=== PATIENT | male | born 1940 | race African-American/Black ===

== ENCOUNTER 2018-06-26 19:17 | Inpatient (IN) | payer OTHER ==
[2018-06-26 19:58] VITALS: BMI 30.9
--- NOTE | 2018-06-26 20:38 | HP ---
CIWA Score Nausea/Vomitin Muscle Tremors: 4-Moderate,w/Arms Extend Anxiety: 2 Agitation: 2 Paroxysmal Sweats: No Perspiration Orientation: 0-Oriented Tacttile Disturbances: 2-Mild Itch/Numbness/Burn Auditory Disturbances: 2-Mild Harshness/Frighten Visual Disturbances: 2-Mild Sensitivity Headache: 2-Mild CIWA-Ar Total Score: 18 - Admission Criteria OASAS Guidelines: Admission for Medically Managed Detox: Requires at least one of the followin. CIWA greater than 12 2. Seizures within the past 24 hours 3. Delirium tremens within the past 24 hours 4. Hallucinations within the past 24 hours 5. Acute intervention needed for co occurring medical disorder 6. Acute intervention needed for co occurring psychiatric disorder 7. Severe withdrawal that cannot be handled at a lower level of care (continued vomiting, continued diarrhea, abnormal vital signs) requiring intravenous medication and/or fluids 8. Admission ROS [facility] - HPI Chief Complaint: DEPENDENT ON STREET [facility] ONLY Allergies/Adverse Reactions: Allergies Allergy/AdvReac Type Severity Reaction Status Date / Time No Known Allergies Allergy Verified 06/26/18 19:54 History of Present Illness: THE PT. IS REQUESTING ADMISSION TO THE DETOX UNIT AND CAME FOR H AND PE Exam Limitations: No Limitations - Ebola screening Have you traveled outside of the country in the last 21 days: No Have you had contact with anyone from an Ebola affected area: No Have you been sick,other than usual withdrawal symptoms: No Do you have a fever: No - Review of Systems Constitutional: See HPI, Malaise, Night Sweats, Weakness EENT: reports: See HPI Respiratory: reports: See HPI Cardiac: reports: See HPI GI: reports: See HPI, Nausea, Abdominal cramping : reports: See HPI Musculoskeletal: reports: See HPI, Muscle Pain, Muscle Weakness Neuro: reports: See HPI, Headache, Tremors, Weakness, Unsteady Gait Endocrine: reports: See HPI Hematology: reports: See HPI Psychiatric: reports: Judgement Intact, Orientated x3, Anxious, Depressed Patient History - Patient Medical History Hx Hypertension: Yes Hx Thyroid Disease: Yes (hypothyroidism) Hx Human Immunodeficiency Virus (HIV): No Hx Hepatitis C: No Other Medical History: ANXIETY DISORDER, PANIC ATTACKS - Patient Surgical History Past Surgical History: No - Smoking Cessation Smoking history: Current every day smoker Have you smoked in the past 12 months: Yes Aproximately how many cigarettes per day: 15 Hx Chewing Tobacco Use: No Initiated information on smoking cessation: Yes 'Breaking Loose' booklet given: 06/26/18 - Substance & Tx. History Hx Alcohol Use: No Hx Substance Use: Yes Substance Use Type: Tranquilizers Hx Substance Use Treatment: No - Substances Abused Diazepam Route: Oral Frequency: 3-6 times per week Amount used: 10-20 mgs./each time - from the street Age of first use: 76 Date of Last Use: 06/25/18 Family Disease History - Family Disease History Family History: Denies Admission Physical Exam [facility] - Vital Signs Vital Signs: Vital Signs - 24 hr 06/26/18 19:42 Temperature 96.5 F L Pulse Rate 76 Respiratory 18 Rate Blood Pressure 131/75 - Physical General Appearance: Yes: No Apparent Distress, Nourished, Appropriately Dressed , Tremorous, Anxious HEENTM: Yes: Hearing grossly Normal, Normocephalic, Normal Voice, EDUARDO, Pharynx Normal Respiratory: Yes: Chest Non-Tender, Normal Breath Sounds, No Respiratory Distress, No Accessory Muscle Use, Rales (A FEW RALES HERE AND THERE+) Neck: Yes: No masses,lesions,Nodules, Supple, Trachea in good position Breast: Yes: Axillae without masses Cardiology: Yes: Regular Rhythm, Regular Rate, S1, S2 Abdominal: Yes: Normal Bowel Sounds, Non Tender, Protuberent Back: Yes: Normal Inspection, Decreased Range of Motion Musculoskeletal: Yes: Back pain, Joint Stiffness, Muscle Pain, Muscle weakness Extremities: Yes: Normal Capillary Refill, Non-Tender, Tremors Neurological: Yes: Fully Oriented, Alert, Motor Strength 5/5, Normal Response, Depressed Affect Integumentary: Yes: Normal Color, Dry, Warm - Addiitonal Findings: DELAYED RESPONSE TO QUESTIONS++. - Diagnostic (1) Benzodiazepine dependence Current Visit: Yes Status: Chronic (2) Anxiety disorder Current Visit: Yes Status: Chronic Qualifiers: Anxiety disorder type: generalized anxiety disorder Qualified Code(s): F41.1 - Generalized anxiety disorder (3) Nicotine dependence Current Visit: Yes Status: Chronic (4) Hypothyroidism Current Visit: Yes Status: Chronic Qualifiers: Hypothyroidism type: unspecified Qualified Code(s): E03.9 - Hypothyroidism , unspecified (5) Panic attacks Current Visit: Yes Status: Chronic Cleared for Admission [facility] - Detox or Rehab [facility] Level of Care: Medically Supervised Detox Regimen/Protocol: Valium [facility] Breath Alcohol Content Breath Alcohol Content: 0 Urine Drug Screen - Results Drug Screen Negative: No Urine Drug Screen Results: BZO-Benzodiazepines
[2018-06-26] MEDS ORDERED: IBUPROFEN 400 MG TABLET (FP) PO PRN (20:47)
[2018-06-26] MEDS ORDERED: guaiFENesin/D-METHORPHAN HB 10 ML UNIT-DOSE CUPS PO PRN (20:47)
[2018-06-26] MEDS ORDERED: LOPERAMIDE HCL 2 MG CAPSULE PO PRN (20:47)
[2018-06-26] MEDS ORDERED: MAG HYDROX/AL HYDROX/SIMETH 30 ML UNIT-DOSE CUP PO PRN (20:47)
[2018-06-26] MEDS ORDERED: MAGNESIUM CITRATE 300 ML BOTTLE PO PRN (20:47)
[2018-06-26] MEDS ORDERED: MENTHOL/PHENOL 1 EACH UD MM PRN (20:47)
[2018-06-26] MEDS ORDERED: MAGNESIUM HYDROX 2400MG/30ML ORAL SUSPENSION 30 ML CUP PO PRN (20:47)
[2018-06-26] MEDS ORDERED: P-EPHED 60MG/TRIPROLIDI 2.5MG TABLET PO PRN (20:47)
[2018-06-26] MEDS ORDERED: diazePAM 5 MG TABLET PO ONE (21:15)
[2018-06-26] MEDS: THIAMINE HCL 100 MG TABLET (FP) PO SCH (23:11)
[2018-06-26] MEDS: MELATONIN 5 MG TABLETS PO PRN (23:13)
[2018-06-26] MEDS: diazePAM 5 MG TABLET PO SCH (23:16)
[2018-06-27] MEDS: diazePAM 5 MG TABLET PO SCH ×3 (05:28→21:57)
[2018-06-27] MEDS: LEVOTHYROXINE NA 25 MCG TABLET (FP) PO SCH (06:54)
[2018-06-27] MEDS: glipiZIDE-XL 2.5 MG TAB.ER.24 PO SCH (06:54)
[2018-06-27] MEDS: PRENATAL VITAMINS W/ FOLIC ACID TABLET (FP) PO SCH (10:15)
[2018-06-27] MEDS: NICOTINE 21 MG/24 HOURS TOPICAL PATCH TD SCH (10:15)
[2018-06-27] MEDS: NIFEdipine E.R. 30 MG TABLET (FP) PO SCH (10:15)
[2018-06-27 11:06] LABS: HEMATOCRIT 46.1 % (35.4-49); HEMOGLOBIN 15.2 GM/dL (11.7-16.9); MCH 29.4 pg (25.7-33.7); MCHC 33.1 g/dl (32.0-35.9); MEAN CELL VOLUME 88.9 fl (80-96); MEAN PLT VOLUME 9.2 fl (7.5-11.1); PLATELET COUNT 232 K/MM3 (134-434); RBC 5.19 M/mm3 (4.00-5.60); RDW 12.9 % (11.9-15.9); WHITE BLOOD COUNT 5.6 K/mm3 (4.0-10.0)
[2018-06-27] MEDS: diazePAM 5 MG TABLET PO PRN (11:07)
[2018-06-27 11:17] LABS: ALBUMIN 3.4 g/dl (3.4-5.0); ALK PHOS 82 U/L (45-117); ANION GAP 6 MMOL/L (8-16); BILIRUBIN,TOTAL 0.6 mg/dL (0.2-1); BLOOD UREA NITROGEN 16 mg/dL (7-18); CALCIUM 8.5 mg/dL (8.5-10.1); CHLORIDE 107 mmol/L (98-107); CO2 27 mmol/L (21-32); CREATININE 0.9 mg/dL (0.55-1.3); GLUCOSE,RANDOM 95 mg/dL (74-106); POTASSIUM 3.9 mmol/L (3.5-5.1); SGOT/AST 39 U/L (15-37); SGPT/ALT 41 U/L (13-61); SODIUM 139 mmol/L (136-145)
--- NOTE | 2018-06-27 11:32 | CONSULT ---
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 This is patient 's first admission to detox at [facility]. Patient admitted to for benzodiazepine dependence. Substance Abuse History: Smoking Cessation. Smoking history: Current every day smoker. Have you smoked in the past 12 months: Yes. Aproximately how many cigarettes per day: 15. Hx Chewing Tobacco Use: No. Initiated information on smoking cessation: Yes. 'Breaking Loose' booklet given: 06/26/18. - Substance & Tx. History. Hx Alcohol Use: No. Hx Substance Use: Yes. Substance Use Type : Tranquilizers. Hx Substance Use Treatment: No. - Substances Abused. Diazepam. Route: Oral. Frequency: 3-6 times per week. Amount used: 10-20 mgs. /each time - from the street. Age of first use: 76. Date of Last Use: 06/25/18 Medical History: hypothyroidism, hypertension Psychiatric History: Patient denies h/o psychiatric hospitalization and outpatient care. Patient is a poor historian. He is unable to state the medications he is currently prescribed. Pharmacy claims reviewed and noted a prescription of zoloft 50mg + risperdal 3mg qhs +Ambien 10mg. He denies h/o psychotic symptoms. At present, he reports stable mood but does reports h/o anxiety. Patient agreeable with accepting zoloft 50mg but is refusing risperdal as he is unsure of the medication. Patient denies h/o suicide attempt. Physical/Sexual Abuse/Trauma History: denies. Mental Status Exam - Mental Status Exam Alert and Oriented to: Time, Person Cognitive Function: Fair Patient Appearance: Well Groomed Mood: Euthymic Affect: Mood Congruent Patient Behavior: Cooperative Speech Pattern: Delayed Voice Loudness: Normal Thought Process: Goal Oriented Hallucinations: Denies Suicidal Ideation: Denies Homicidal Ideation: Denies Insight/Judgement: Poor Sleep: Fair Appetite: Poor Muscle strength/Tone: Normal Gait/Station: Normal Psychiatric Findings - Problem List ([place] 1, 2,3) (1) Nicotine dependence Current Visit: Yes Status: Chronic Qualifiers: Nicotine product type: cigarettes Substance use status: uncomplicated Qualified Code(s): F17.210 - Nicotine dependence, cigarettes, uncomplicated (2) Anxiety disorder Current Visit: Yes Status: Suspected Qualifiers: Anxiety disorder type: generalized anxiety disorder Qualified Code(s): F41.1 - Generalized anxiety disorder (3) Benzodiazepine dependence Current Visit: Yes Status: Chronic - Initial Treatment Plan Initial Treatment Plan: Psychoeducation provided. Detoxifciation in progress. Pharmacy claims reviewed and noted a prescription of zoloft 50mg + risperdal 3mg. Patient unfamiliar with the medications. Stated to sports writer, ' I can take the zoloft but not the other medication. I don't know what that is."
[2018-06-27] MEDS: SERTRALINE HCL 50 MG TABLET (FP) PO SCH (13:54)
--- NOTE | 2018-06-27 17:16 | PN ---
S CIWA - CIWA Score Nausea/Vomitin-No Nausea/No Vomiting Muscle Tremors: 4-Moderate,w/Arms Extend Anxiety: 5 Agitation: 4-Moderately Restless Paroxysmal Sweats: No Perspiration Orientation: 2-Disoriented Date<2 days Tacttile Disturbances: 3-Moderate Itch/Numb/Burn Auditory Disturbances: 0-None Visual Disturbances: 0-None Headache: 0-None Present CIWA-Ar Total Score: 18 BHS Progress Note (SOAP) Subjective: Anxious, Tremors. Objective: PATIENT A & O X 2 (UNCERTAIN ABOUT CURRENT DAY / DATE). PATIENT OBSERVED AMBULATING ON UNIT. IN NO ACUTE DISTRESS. 06/27/18 17:17 Vital Signs Temperature 96.4 F L 06/27/18 13:32 Pulse Rate 70 06/27/18 13:32 Respiratory Rate 18 06/27/18 13:32 Blood Pressure 118/70 06/27/18 13:32 O2 Sat by Pulse Oximetry (%) Laboratory Tests 06/27/18 06/27/18 06/27/18 05:30 07:30 07:30 WBC 5.6 RBC 5.19 Hgb 15.2 Hct 46.1 MCV 88.9 MCH 29.4 MCHC 33.1 RDW 12.9 Plt Count 232 MPV 9.2 Sodium 139 Potassium 3.9 Chloride 107 Carbon Dioxide 27 Anion Gap 6 L BUN 16 Creatinine 0.9 Creat Clearance w eGFR > 60 POC Glucometer 119 Random Glucose 95 Calcium 8.5 Total Bilirubin 0.6 AST 39 H ALT 41 Alkaline Phosphatase 82 Total Protein 7.0 Albumin 3.4 RPR Titer 06/27/18 06/27/18 07:30 16:21 WBC RBC Hgb Hct MCV MCH MCHC RDW Plt Count MPV Sodium Potassium Chloride Carbon Dioxide Anion Gap BUN Creatinine Creat Clearance w eGFR POC Glucometer 133 Random Glucose Calcium Total Bilirubin AST ALT Alkaline Phosphatase Total Protein Albumin RPR Titer Nonreactive LABS NOTED. Assessment: 06/27/18 17:18 WITHDRAWAL SYMPTOMS. Plan: CONTINUE DETOX.
[2018-06-27] MEDS: THIAMINE HCL 100 MG TABLET (FP) PO SCH (21:57)
[2018-06-27] MEDS: NICOTINE POLACRILEX 4 MG GUM BC PRN (22:13)
[2018-06-27] MEDS: MELATONIN 5 MG TABLETS PO PRN (22:36)
[2018-06-28] MEDS: glipiZIDE-XL 2.5 MG TAB.ER.24 PO SCH (06:39)
[2018-06-28] MEDS: LEVOTHYROXINE NA 25 MCG TABLET (FP) PO SCH (06:40)
[2018-06-28] MEDS: PRENATAL VITAMINS W/ FOLIC ACID TABLET (FP) PO SCH (10:57)
[2018-06-28] MEDS: NICOTINE 21 MG/24 HOURS TOPICAL PATCH TD SCH (10:57)
[2018-06-28] MEDS: hydrOXYzine PAMOATE 25 MG CAPSULE (FP) PO PRN (10:57)
[2018-06-28] MEDS: SERTRALINE HCL 50 MG TABLET (FP) PO SCH (10:57)
[2018-06-28] MEDS: NIFEdipine E.R. 30 MG TABLET (FP) PO SCH (10:58)
[2018-06-28] MEDS: diazePAM 5 MG TABLET PO SCH ×2 (10:58→22:14)
--- NOTE | 2018-06-28 16:07 | PN ---
S CIWA - CIWA Score Nausea/Vomitin-Mild Nausea/No Vomiting Muscle Tremors: 3 Anxiety: 3 Agitation: 3 Paroxysmal Sweats: 1-Minimal Palms Moist Orientation: 0-Oriented Tacttile Disturbances: 1-Very Mild Itch/Numbness Auditory Disturbances: 0-None Visual Disturbances: 0-None Headache: 2-Mild CIWA-Ar Total Score: 14 BHS Progress Note (SOAP) Subjective: anxiety restlessness tremor sweat Objective: 06/28/18 16:06 Vital Signs Temperature 98.4 F 06/28/18 13:43 Pulse Rate 85 06/28/18 13:43 Respiratory Rate 18 06/28/18 13:43 Blood Pressure 116/75 06/28/18 13:43 O2 Sat by Pulse Oximetry (%) Laboratory Last Values WBC 5.6 K/mm3 (4.0-10.0) 06/27/18 07:30 RBC 5.19 M/mm3 (4.00-5.60) 06/27/18 07:30 Hgb 15.2 GM/dL (11.7-16.9) 06/27/18 07:30 Hct 46.1 % (35.4-49) 06/27/18 07:30 MCV 88.9 fl (80-96) 06/27/18 07:30 MCH 29.4 pg (25.7-33.7) 06/27/18 07:30 MCHC 33.1 g/dl (32.0-35.9) 06/27/18 07:30 RDW 12.9 % (11.9-15.9) 06/27/18 07:30 Plt Count 232 K/MM3 (134-434) 06/27/18 07:30 MPV 9.2 fl (7.5-11.1) 06/27/18 07:30 Sodium 139 mmol/L (136-145) 06/27/18 07:30 Potassium 3.9 mmol/L (3.5-5.1) 06/27/18 07:30 Chloride 107 mmol/L (98-107) 06/27/18 07:30 Carbon Dioxide 27 mmol/L (21-32) 06/27/18 07:30 Anion Gap 6 MMOL/L (8-16) L 06/27/18 07:30 BUN 16 mg/dL (7-18) 06/27/18 07:30 Creatinine 0.9 mg/dL (0.55-1.3) 06/27/18 07:30 Creat Clearance w eGFR > 60 (>60) 06/27/18 07:30 POC Glucometer 119 UNITS (80-120) 06/28/18 05:49 Random Glucose 95 mg/dL (74-106) 06/27/18 07:30 Calcium 8.5 mg/dL (8.5-10.1) 06/27/18 07:30 Total Bilirubin 0.6 mg/dL (0.2-1) 06/27/18 07:30 AST 39 U/L (15-37) H 06/27/18 07:30 ALT 41 U/L (13-61) 06/27/18 07:30 Alkaline Phosphatase 82 U/L (45-117) 06/27/18 07:30 Total Protein 7.0 g/dl (6.4-8.2) 06/27/18 07:30 Albumin 3.4 g/dl (3.4-5.0) 06/27/18 07:30 RPR Titer Nonreactive (NONREACTIVE) 06/27/18 07:30 lab noted Assessment: 06/28/18 16:07 withdrawal sx Plan: continue detox
--- NOTE | 2018-06-28 19:06 | EKG ---
Test Reason : Blood Pressure : / mmHG Vent. Rate : 057 BPM Atrial Rate : 057 BPM P-R Int : 180 ms QRS Dur : 116 ms QT Int : 432 ms P-R-T Axes : 064 -45 -04 degrees QTc Int : 420 ms SINUS BRADYCARDIA LEFT ANTERIOR FASCICULAR BLOCK SEPTAL INFARCT , AGE UNDETERMINED ABNORMAL ECG NO PREVIOUS ECGS AVAILABLE Confirmed by IRA GONZALEZ MD ([id number]) on 06/28/2018 7:06:13 PM Referred By: Confirmed By:IRA GONZALEZ MD
[2018-06-28] MEDS: THIAMINE HCL 100 MG TABLET (FP) PO SCH (22:14)
[2018-06-28] MEDS: MELATONIN 5 MG TABLETS PO PRN (22:15)
[2018-06-29] MEDS: diazePAM 5 MG TABLET PO PRN (05:47)
[2018-06-29] MEDS: ACETAMINOPHEN 325 MG TABLET (FP) PO PRN ×2 (05:51→18:11)
[2018-06-29] MEDS: LEVOTHYROXINE NA 25 MCG TABLET (FP) PO SCH (07:04)
[2018-06-29] MEDS: glipiZIDE-XL 2.5 MG TAB.ER.24 PO SCH (07:05)
[2018-06-29] MEDS: NICOTINE 21 MG/24 HOURS TOPICAL PATCH TD SCH (10:58)
[2018-06-29] MEDS: PRENATAL VITAMINS W/ FOLIC ACID TABLET (FP) PO SCH (11:00)
[2018-06-29] MEDS: diazePAM 5 MG TABLET PO SCH ×2 (11:00→21:35)
[2018-06-29] MEDS: NIFEdipine E.R. 30 MG TABLET (FP) PO SCH (11:00)
[2018-06-29] MEDS: SERTRALINE HCL 50 MG TABLET (FP) PO SCH (11:01)
--- NOTE | 2018-06-29 11:15 | PN ---
S CIWA - CIWA Score Nausea/Vomitin-No Nausea/No Vomiting (chronic acid reflux) Muscle Tremors: None Anxiety: 1-Mildly Anxious Agitation: 0-Normal Activity Paroxysmal Sweats: No Perspiration Orientation: 0-Oriented Tacttile Disturbances: 0-None Auditory Disturbances: 0-None Visual Disturbances: 0-None Headache: 1-Very Mild CIWA-Ar Total Score: 2 BHS Progress Note (SOAP) Subjective: feeling better mild anxiety and restlessness and gi distress Objective: 06/29/18 11:15 Vital Signs Temperature 95.8 F L 06/29/18 09:13 Pulse Rate 63 06/29/18 09:13 Respiratory Rate 18 06/29/18 09:13 Blood Pressure 132/74 06/29/18 09:13 O2 Sat by Pulse Oximetry (%) Laboratory Last Values WBC 5.6 K/mm3 (4.0-10.0) 06/27/18 07:30 RBC 5.19 M/mm3 (4.00-5.60) 06/27/18 07:30 Hgb 15.2 GM/dL (11.7-16.9) 06/27/18 07:30 Hct 46.1 % (35.4-49) 06/27/18 07:30 MCV 88.9 fl (80-96) 06/27/18 07:30 MCH 29.4 pg (25.7-33.7) 06/27/18 07:30 MCHC 33.1 g/dl (32.0-35.9) 06/27/18 07:30 RDW 12.9 % (11.9-15.9) 06/27/18 07:30 Plt Count 232 K/MM3 (134-434) 06/27/18 07:30 MPV 9.2 fl (7.5-11.1) 06/27/18 07:30 Sodium 139 mmol/L (136-145) 06/27/18 07:30 Potassium 3.9 mmol/L (3.5-5.1) 06/27/18 07:30 Chloride 107 mmol/L (98-107) 06/27/18 07:30 Carbon Dioxide 27 mmol/L (21-32) 06/27/18 07:30 Anion Gap 6 MMOL/L (8-16) L 06/27/18 07:30 BUN 16 mg/dL (7-18) 06/27/18 07:30 Creatinine 0.9 mg/dL (0.55-1.3) 06/27/18 07:30 Creat Clearance w eGFR > 60 (>60) 06/27/18 07:30 POC Glucometer 107 UNITS (80-120) 06/29/18 05:44 Random Glucose 95 mg/dL (74-106) 06/27/18 07:30 Calcium 8.5 mg/dL (8.5-10.1) 06/27/18 07:30 Total Bilirubin 0.6 mg/dL (0.2-1) 06/27/18 07:30 AST 39 U/L (15-37) H 06/27/18 07:30 ALT 41 U/L (13-61) 06/27/18 07:30 Alkaline Phosphatase 82 U/L (45-117) 06/27/18 07:30 Total Protein 7.0 g/dl (6.4-8.2) 06/27/18 07:30 Albumin 3.4 g/dl (3.4-5.0) 06/27/18 07:30 RPR Titer Nonreactive (NONREACTIVE) 06/27/18 07:30 lab noted Assessment: 06/29/18 11:16 mild withdrawal sx Plan: continue detox
[2018-06-29] MEDS ORDERED: DICYCLOMINE HCL 10 MG CAPSULE PO ONE (11:20)
[2018-06-29] MEDS: RANITIDINE HCL 150 MG TABLET (FP) PO SCH ×2 (12:00→21:33)
[2018-06-29] MEDS: THIAMINE HCL 100 MG TABLET (FP) PO SCH (21:33)
[2018-06-29] MEDS: MELATONIN 5 MG TABLETS PO PRN (21:36)
[2018-06-29] MEDS: NICOTINE POLACRILEX 4 MG GUM BC PRN (22:17)
[2018-06-29] MEDS: hydrOXYzine PAMOATE 25 MG CAPSULE (FP) PO PRN (23:18)
[2018-06-30] MEDS: LEVOTHYROXINE NA 25 MCG TABLET (FP) PO SCH (06:22)
[2018-06-30] MEDS: glipiZIDE-XL 2.5 MG TAB.ER.24 PO SCH (06:23)
[2018-06-30 09:41] VITALS: BP 131/75; PULSE 76; TEMP 96.3
[2018-06-30] MEDS ORDERED: diazePAM 5 MG TABLET PO SCH (10:00)
[2018-06-30] MEDS: NICOTINE 21 MG/24 HOURS TOPICAL PATCH TD SCH (10:30)
[2018-06-30] MEDS: PRENATAL VITAMINS W/ FOLIC ACID TABLET (FP) PO SCH (10:30)
[2018-06-30] MEDS: RANITIDINE HCL 150 MG TABLET (FP) PO SCH (10:31)
[2018-06-30] MEDS: NIFEdipine E.R. 30 MG TABLET (FP) PO SCH (10:31)
[2018-06-30] MEDS: SERTRALINE HCL 50 MG TABLET (FP) PO SCH (10:32)
[2018-06-30 10:59] LABS: URINE APPEARANCE CLEAR; URINE BILIRUBIN NEGATIVE (<2.0 mg/dL); URINE COLOR YELLOW; URINE GLUCOSE (UA) NEGATIVE (NEGATIVE); URINE KETONE NEGATIVE (NEGATIVE); URINE LEUK ESTERASE NEGATIVE (NEGATIVE); URINE NITRITE NEGATIVE (NEGATIVE); URINE PROTEIN NEGATIVE (NEGATIVE); URINE UROBILINOGEN 4.0 E.U/dl mg/dL (0.2-1.0)
--- NOTE | 2018-06-30 16:51 | DS ---
[facility] Detox Discharge Summary Admission Date: 06/26/18 Discharge Date: 06/30/18 - History Present History: Sedative Dependence Additional Comments: PATIENT COMPLETED DETOX REGIMEN WITHOUT ADVERSE EVENT. PATIENT ALERT AND ORIENTED TO NAME, PLACE (UNCERTAIN WITH DATE). PATIENT ACCEPTED REHAB REFERRAL TO [facility]. MEDICALLY STABLE AND DENIES SI/HI PATIENT C/O MILD EPIGASTRIC ABDOMINAL DISCOMFORT BUT DENIES FEVER, NAUSEA, VOMITING AND DIARRHEA. PE: SKIN WARM AND DRY, CAR SI, S2, RESP CTA BL GI SOFT, BS+, NT, NEG GUARDING, EXT FULL ROM, AMB AD DEREK. PATIENT ENCOURAGE TO ATTEND GROUP MEETINGS TO PREVENT RELAPSE AND TO FOLLOW UP WITH PCP WITHIN 72 HOURS OF D/C. STRONGLY ADVISED TO GO TO ER IF FEVER, CP, SOB OCCURS AND IF ABDOMINAL PAIN WORSENS. - Physical Exam Results Vital Signs: Vital Signs Temperature 96.3 F L 06/30/18 09:41 Pulse Rate 76 06/30/18 09:41 Respiratory Rate 18 06/30/18 09:41 Blood Pressure 131/75 06/30/18 09:41 O2 Sat by Pulse Oximetry (%) - Treatment Hospital Course: Detox Protocol Followed, Detoxed Safely, Responded well, Discharged Condition Good, Rehab Referral Accepted Patient has Accepted a Rehab Referral to: [facility] - Medication Discharge Medications: Ambulatory Orders Doxazosin Mesylate [Cardura -] 2 mg PO HS 06/26/18 Glipizide [Glipizide ER] 2.5 mg PO BID 06/26/18 Levothyroxine [Synthroid -] 50 mcg PO DAILY 06/26/18 Nifedipine ER [Procardia XL -] 30 mg PO DAILY 06/26/18 Risperidone [Risperdal -] 3 mg PO HS 06/26/18 Sertraline HCl [Zoloft -] 50 mg PO DAILY 06/27/18 - AMA Did Patient Leave Against Medical Advice: No
== END 2018-06-30 14:25 | disposition home or self-care (01) | DRG 897 ==
LOC: YASAS 19:17 → Y6N 21:05 → Y3N 21:33
PROC: HZ2ZZZZ Detoxification Services for Substance Abuse Treatment (ICD-10-PCS; principal; 2018-06-26)
DX: F13.230 Sedative, hypnotic or anxiolytic dependence with withdrawal, uncomplicated (principal); F17.210 Nicotine dependence, cigarettes, uncomplicated; F41.0 Panic disorder [episodic paroxysmal anxiety]; F41.1 Generalized anxiety disorder; I10 Essential (primary) hypertension; E03.9 Hypothyroidism, unspecified
CPT/HCPCS: 36415; 80053; 81003; 82962; 85027; 86593; 93005; 93010